=== PATIENT | female | born 1985 | race African-American/Black ===

== ENCOUNTER 2016-12-30 02:54 | Observation (INO) | payer BC ==
[~2016-12-30] VITALS: Ht 152.4 cm; Wt 106.8 kg
[~2016-12-30 02:54] MED LIST: NALOXONE HCL 0.4 MG/ML AMP IV PRN; SODIUM CHLORIDE 0.9% FLUSH 10 ML FLUSH IV FLUSH PRN
[2016-12-30 08:47] VITALS: BP 142/97; PULSE 108; RESP 16; TEMP 96.5; O2SAT 91
[2016-12-30] MEDS ORDERED: SODIUM CHLORIDE 0.9% FLUSH 10 ML FLUSH IV FLUSH SCH (09:00)
[2016-12-30 11:00] VITALS: O2SAT 94
--- NOTE | 2016-12-30 11:44 | RADRPT ---
EXAM DATE/TIME: 12/30/2016 10:15 [place] COMPARISON: CT PULMONARY ANGIOGRAM, December 29, 2016, 22:25. CHEST SINGLE AP, December 29, 2016, 21:23. INDICATIONS : Dyspnea with elevated D-dimer. DOSE: 8.5 mCi Tc99m MAA IV 1.8 mCi Tc99m DTPA aerosol MEDICAL HISTORY : Asthma. SURGICAL HISTORY : None. ENCOUNTER: Initial ACUITY: 1 day PAIN SCALE: 0/10 LOCATION: Chest TECHNIQUE: Following five minutes of tidal breathing of DTPA aerosol, planar images of the lungs were performed in eight projections. The patient was then injected with MAA, and eight-view perfusion scan was perf ormed. FINDINGS: There is a segmental matched defect involving the superior segment of the right lower lobe and the re st of the perfusion appears intact bilaterally without any correlative chest x-ray findings. CONCLUSION: Scan findings are intermediate probability for pulmonary embolus. Kevin Zarate MD on December 30, 2016 at 11:39 Board Certified Radiologist. This report was verified electronically.
[2016-12-30] MEDS ORDERED: RESP: ALBUTEROL 2.5 MG/IPRATROPIUM 0.5 MG NEB (PRN) NEB (11:45)
[2016-12-30 12:08] LABS: BLOOD GAS BASE EXCESS -0.6 mmol/L (-2-2); BLOOD GAS HCO3 23 mmol/L (22-26); BLOOD GAS METHEMOGLOBIN 1.2 % (0-2); BLOOD GAS O2 HGB SATURATION 85 % (90-100); BLOOD GAS OXYGEN CONTENT 17.4 Vol % (12.0-20.0); BLOOD GAS PCO2 35 mmHG (38-42); BLOOD GAS PO2 55 mmHG (61-120); BLOOD GAS TOTAL HGB 14.6 G/DL (12.0-16.0); CRITICAL VALUE YES; DRAW SITE RT RADIAL; NUMBER OF ARTERIAL PUNCTURES 1; OXYGEN DEVICE ROOM AIR; STAT NO; TEMP CORR TO 98.6; ULNAR PULSE PRESENT
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
[2016-12-30] MEDS ORDERED: XARE15TA PO (12:25)
[2016-12-30] MEDS ORDERED: OXYGENDME NAS.CANULA (12:26)
[2016-12-30] MEDS ORDERED: RIVAROXABAN 15 MG TAB PO SCH (13:00)
== END 2016-12-30 17:44 | disposition home or self-care (01) ==
LOC: PHEDDLT 02:54 → PH3A 03:04
PROVIDERS: ADMIT Family Medicine; ATTEND Family Medicine
DX: I26.99 Other pulmonary embolism without acute cor pulmonale (principal); J06.9 Acute upper respiratory infection, unspecified; R09.02 Hypoxemia; J45.909 Unspecified asthma, uncomplicated; E28.2 Polycystic ovarian syndrome
CPT/HCPCS: 36600; 71010; 71275; 78582; 80048; 82805; 84484; 84702; 85025; 85379; 93005; 94620; 94640; 94664; 96365; 96372; 96375; 99285; A9540; A9567; G0378; J1650; J2543; J2930; Q9967